=== PATIENT | male | born 1970 | race Two or more races ===

== ENCOUNTER 2016-11-20 13:48 | Emergency (ER) | payer OTHER ==
[2016-11-20 13:52] VITALS: BP 119/79; PULSE 56; TEMP 98; BMI 26.4
[2016-11-20] MEDS ORDERED: KETOROLAC TROMETHAMINE 60 MG/2 ML VIAL IM ONE (15:13)
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
[2016-11-20] MEDS ORDERED: KETOROLAC TROMETHAMINE 60 MG/2 ML VIAL ONE (15:15)
== END 2016-11-20 16:34 | disposition home or self-care (01) ==
LOC: JERFT 13:48
PROC: 3E0233Z Introduction of Anti-inflammatory into Muscle, Percutaneous Approach (ICD-10-PCS; principal; 2016-11-20)
DX: S29.8XXA Other specified injuries of thorax, initial encounter (principal); S13.4XXA Sprain of ligaments of cervical spine, initial encounter; S63.615A Unspecified sprain of left ring finger, initial encounter; V43.52XA Car driver injured in collision with other type car in traffic accident, initial encounter; Y92.414 Local residential or business street as the place of occurrence of the external cause; Y93.89 Activity, other specified; Y99.9 Unspecified external cause status; E11.9 Type 2 diabetes mellitus without complications; Z79.84 Long term (current) use of oral hypoglycemic drugs
CPT/HCPCS: 72050-TC; 72100-TC; 73140-TC-LT; 99281-25